=== PATIENT | male | born 1945 | race Hispanic/Latino ===

== ENCOUNTER 2018-01-01 06:36 | Day surgery (SDC) | payer OTHER ==
[2017-12-28 13:50] VITALS: BP 133/54
[2017-12-28 14:23] LABS: CREATININE 1.5 mg/dL (0.5-1.5); INR 1.02 (0.85-1.15); PARTIAL THROMBOPLASTIN TIME 30.5 SEC (26.3-35.5); POTASSIUM 4.9 mmol/L (3.5-5.1); PROTHROMBIN TIME 10.7 SEC (9.6-11.6)
[2017-12-28 14:31] LABS: BASOPHILS % (AUTO) 0.8 % (0.0-5.0); EOSINOPHILS % (AUTO) 2.6 % (0.0-8.0); HEMATOCRIT 40.1 % (42-54); LYMPHOCYTES % (AUTO) 27.2 % (21.0-51.0); MEAN CORPUSCULAR HGB CONC 33.9 g/dL (32.0-36.0); MEAN CORPUSCULAR VOLUME 91.5 fL (79-99); MONOCYTES % (AUTO) 9.2 % (3.0-13.0); NEUTROPHILS % (AUTO) 60.2 % (40.0-77.0); NUCLEATED RED BLOOD CELLS 0.1 % (0.0-0.19); PLATELET COUNT (AUTO) 293 K/uL (130-400); RED BLOOD CELL COUNT(AUTO) 4.39 MIL/uL (4.50-6.20); RED CELL DISTRIBUTION WIDTH 13.9 % (11.0-15.5); WHITE BLOOD COUNT (AUTO) 11.6 K/uL (4.8-10.8)
[2017-12-28 14:49] LABS: APPEARANCE,URINE Clear (CLEAR); BILIRUBIN,URINE Negative (NEGATIVE); COLOR,URINE Yellow (YELLOW); GLUCOSE, URINE (UA) Negative (NEGATIVE); KETONES,URINE Negative (NEGATIVE); LEUKOCYTE ESTERASE ,URINE Negative (NEGATIVE); NITRATE,URINE Negative (NEGATIVE); OCCULT BLOOD,URINE Negative (NEGATIVE); PROTEIN,URINE Negative (NEGATIVE); UROBILINOGEN,URINE 0.2 mg/dL (0.2-1.0)
[~2018-01-01] VITALS: Ht 170.2 cm; Wt 93.6 kg
[2018-01-01] VITALS (17 sets, daily range): BP systolic 128–150; BP diastolic 47–65
[~2018-01-01 06:36] MED LIST: AMLO10TA2 PO; CLOP75TA32 PO; CYAN10009 PO; DONE10TA43 PO; DULO60CA63 PO; EZET10 PO; FE F1CAP33 PO; FISH1CAP49 PO; GEMF600T3 PO; INS7030 SQ; ISOS60TA4 PO; LISI1TAB9 PO; MAGN400T6 PO; METF10004 PO; METO-391 PO; PRAV20TA4 PO; SODIUM CHLORIDE 0.9% 500ML 500 ML IV SCH; TAMS0.4C32 PO; VORA2.082 PO
[2018-01-01] MEDS ORDERED: SODIUM CHLORIDE 0.9% 1000ML 1,000 ML IV ONE (08:14)
[2018-01-01] MEDS ORDERED: NITROGLYCERIN 5 MG/ML 10 ML VIAL IV ONE (09:40)
[2018-01-01] MEDS ORDERED: IOPAMIDOL-370 100 ML VIAL IV ONE (09:40)
[2018-01-01] MEDS ORDERED: ISOVUE-370 50ML VIAL IV ONE (09:40)
[2018-01-01] MEDS ORDERED: HEPARIN SODIUM 1000UNIT/ML 10ML VIAL ONE (09:40)
[2018-01-01] MEDS ORDERED: LIDOCAINE HCL 2% 20ML ONE (09:41)
[2018-01-01] MEDS ORDERED: SODIUM CHLORIDE 0.9% 1000ML 1,000 ML IV SCH (10:43)
[2018-01-01] MEDS ORDERED: GLUCAGON 1MG KIT 1 MG ML IM PRN (10:45)
[2018-01-01] MEDS ORDERED: HYDRALAZINE HCL 20 MG/ML VIAL IV PRN (10:45)
[2018-01-01] MEDS ORDERED: METOPROLOL TARTRATE 1 MG/ML 5ML VIAL IV PRN (10:45)
[2018-01-01] MEDS ORDERED: NITROGLYCERIN 0.4 MG SL TAB SL PRN (10:45)
[2018-01-01] MEDS ORDERED: DEXTROSE 50%-WATER 50 ML DISP.SYRIN IV PRN (10:45)
[2018-01-01] MEDS ORDERED: ATROPINE SULFATE 0.1 MG/ML 10 ML SYG IVP ONE (11:11)
[2018-01-01] MEDS ORDERED: INSULIN HUMULIN R 100 UNIT/ML 3ML SQ SCH (11:30)
== END 2018-01-01 15:10 | disposition home or self-care (01) ==
LOC: DAH 06:36
PROVIDERS: ATTEND Internal Medicine Cardiovascular Disease
DX: I25.119 Atherosclerotic heart disease of native coronary artery with unspecified angina pectoris (principal); Z95.1 Presence of aortocoronary bypass graft; Z79.899 Other long term (current) drug therapy; F32.9 Major depressive disorder, single episode, unspecified; E11.9 Type 2 diabetes mellitus without complications; E78.5 Hyperlipidemia, unspecified; I10 Essential (primary) hypertension; Z82.49 Family history of ischemic heart disease and other diseases of the circulatory system; Z83.3 Family history of diabetes mellitus; Z68.32 Body mass index [BMI] 32.0-32.9, adult; R06.02 Shortness of breath
CPT/HCPCS: 36415; 71045; 80048; 81003; 82948 ×2; 85025; 85610; 85730; 93005; 93458; A4606; C1894 ×2; J1644; J1815; J3490 ×2; J7030; Q9967; J0461

== ENCOUNTER → 2018-08-01 | Outpatient (CLI) | payer OTHER ==
[~2018-08-01] MED LIST changes: -AMLO10TA2 PO; +AMLO10TA6 PO; -GEMF600T3 PO; +GEMF600T4 PO; +METF-446 PO; -METF10004 PO; -SODIUM CHLORIDE 0.9% 500ML 500 ML IV SCH
== END | disposition home or self-care (01) ==
LOC: RAH 10:06
PROVIDERS: ATTEND Internal Medicine Cardiovascular Disease
DX: K76.0 Fatty (change of) liver, not elsewhere classified (principal); J44.9 Chronic obstructive pulmonary disease, unspecified; Z95.1 Presence of aortocoronary bypass graft
CPT/HCPCS: 71250

== ENCOUNTER → 2019-05-23 | Outpatient (CLI) | payer OTHER ==
[~2019-05-23] MED LIST changes: -AMLO10TA6 PO; +AMLO10TA7 PO; +CYAN-52 PO; -CYAN10009 PO; -DULO60CA63 PO; +DULO60CA64 PO; -GEMF600T4 PO; +GEMF600T5 PO
== END | disposition home or self-care (01) ==
LOC: SHCH 12:40
PROVIDERS: ATTEND Internal Medicine Cardiovascular Disease
DX: I73.9 Peripheral vascular disease, unspecified (principal); R09.89 Other specified symptoms and signs involving the circulatory and respiratory systems
CPT/HCPCS: 93880; 93925

== ENCOUNTER → 2019-05-29 | Outpatient (CLI) | payer OTHER | END | disposition home or self-care (01) | LOC: SHCH 15:00 | PROVIDERS: ATTEND Internal Medicine Cardiovascular Disease | DX: I08.2 Rheumatic disorders of both aortic and tricuspid valves (principal); I11.9 Hypertensive heart disease without heart failure; I20.9 Angina pectoris, unspecified; J44.9 Chronic obstructive pulmonary disease, unspecified | CPT/HCPCS: 93306 ==

== ENCOUNTER 2019-07-25 06:19 | Day surgery (SDC) | payer OTHER ==
[2019-07-23 13:39] VITALS: BP 128/50
[2019-07-23 13:50] LABS: BASOPHILS % (AUTO) 0.9 % (0.0-5.0); EOSINOPHILS % (AUTO) 1.4 % (0.0-8.0); HEMATOCRIT 33.3 % (42-54); LYMPHOCYTES % (AUTO) 26.3 % (21.0-51.0); MEAN CORPUSCULAR HEMOGLOBIN 30.4 pg (27.0-33.0); MEAN CORPUSCULAR HGB CONC 33.2 g/dL (32.0-36.0); MEAN CORPUSCULAR VOLUME 91.5 fL (79-99); MONOCYTES % (AUTO) 9.8 % (3.0-13.0); NEUTROPHILS % (AUTO) 61.6 % (40.0-77.0); PLATELET COUNT (AUTO) 313 K/uL (130-400); RED BLOOD CELL COUNT(AUTO) 3.64 MIL/uL (4.50-6.20); RED CELL DISTRIBUTION WIDTH 18.3 % (11.0-15.5)
[2019-07-23 14:18] LABS: APPEARANCE,URINE Clear (CLEAR); BILIRUBIN,URINE Negative (NEGATIVE); COLOR,URINE Yellow (YELLOW); GLUCOSE, URINE (UA) Negative (NEGATIVE); KETONES,URINE Negative (NEGATIVE); LEUKOCYTE ESTERASE ,URINE Trace (NEGATIVE); NITRATE,URINE Negative (NEGATIVE); OCCULT BLOOD,URINE Negative (NEGATIVE); PH,URINE 5.5 (5.0-8.0); PROTEIN,URINE Trace mg/dL (NEGATIVE)
[2019-07-23 14:20] LABS: INR 1.02 (0.85-1.15); PARTIAL THROMBOPLASTIN TIME 31.7 SEC (26.3-35.5); PROTHROMBIN TIME 10.7 SEC (9.6-11.6)
[2019-07-23 14:22] LABS: CREATININE 1.5 mg/dL (0.5-1.5)
[2019-07-23 14:29] LABS: POTASSIUM 5.6 mmol/L (3.5-5.1)
[2019-07-23 14:36] LABS: BACTERIA,URINE Rare /HPF (None Seen); RBC,URINE 0-1 /HPF (0-1); SQUAMOUS EPITHELIAL CELL,UR Rare /HPF (0-2)
--- NOTE | 2019-07-24 14:08 | NUR ---
LABS ABNORMAL LABS FAXED TO [facility] PER HIS REQUEST. AWAITING FOR FURTHER ORDERS
--- NOTE | 2019-07-24 14:30 | NUR ---
LABS INFORMED OSMANY PEÑA OF ABNORMAL BUN/CREA/POTASSIUM/UA. ORDERS RECEIVED TO HAVE PT HOLD LISINOPRIL AND TAKE KAYEXALATE 15GRAMS X1 DOSE TONIGHT AND REPEAT BMP IN AM.
--- NOTE | 2019-07-24 15:56 | NUR ---
[facility] CALLED PT TO INFORM TO HOLD LISINOPRIL AND ORDERS FOR KAYEXALATE 15GRAMS PO X1 DOSE TONIGHT. WANTS PRESCRIPTION CALLED IN TO [facility] ON ANAN[place] [phone]. PT VERBALIZED UNDERSTANDING. PRERSCRIPTION CALLED IN TO [facility] WILL[facility]. PT WILL [employer] SPECIALIST PRESCRIPTION TODAY.
[2019-07-25] VITALS (19 sets, daily range): BP systolic 119–171; BP diastolic 51–67
[~2019-07-25] VITALS: Ht 172.7 cm; Wt 88.5 kg
[~2019-07-25 06:19] MED LIST changes: +ALBU8.5H8 IH; +ALLO100T PO; -EZET10 PO; +EZET10TA13 PO; +FLUT1BLS IH; -INS7030 SQ; -ISOS60TA4 PO; +LISI1TAB28 PO; -LISI1TAB9 PO; -MAGN400T6 PO; +NITR0.4T50 SL; +UMEC62.5 IH; -VORA2.082 PO
[2019-07-25 07:00] LABS: CREATININE 1.7 mg/dL (0.5-1.5); POTASSIUM 4.8 mmol/L (3.5-5.1)
[2019-07-25] MEDS ORDERED: IOHEXOL 350 MG/ML 100ML INFUS..BTL IV ONE ×2 (07:40→07:59)
[2019-07-25] MEDS ORDERED: LIDOCAINE HCL 2% 20ML ONE (07:40)
[2019-07-25] MEDS ORDERED: IOHEXOL-350 50ML VIAL IV ONE (07:40)
[2019-07-25] MEDS ORDERED: BIVALIRUDIN 250 MG/VIAL IV ONE (07:40)
[2019-07-25] MEDS ORDERED: NITROGLYCERIN 5 MG/ML 10 ML VIAL IV ONE (07:40)
[2019-07-25] MEDS ORDERED: SODIUM CHLORIDE 0.9% 1000ML 1,000 ML IV SCH ×2 (08:00→12:44)
[2019-07-25] MEDS ORDERED: INS7030 SQ ×2 (08:01)
--- NOTE | 2019-07-25 08:13 | NUR ---
BMP BMP RESULTS REPORTED TO OSMANY ASHLEY. POTASSIUM LEVEL 4.8, CREAT 1.7. ORDERS TO GIVE NS 250 ML IV BOLUS THEN NS 75 ML/HR UNTIL PT GOES TO PROCEDURE. Addendum: 07/25/19 at 0939 by HEATHER VALDEZ RN RN ADDENDUM: NS 250 ML IV BOLUS STARTED, PT TOLERATING WELL.
[2019-07-25] MEDS ORDERED: SODIUM CHLORIDE 0.9% 250 ML IV SCH (10:45)
[2019-07-25] MEDS ORDERED: MIDAZOLAM HCL 1 MG/ML 2ML VIAL ONE (10:52)
[2019-07-25] MEDS ORDERED: FENTANYL CITRATE PF 50 MCG/1 ML 2ML VIAL ONE (10:53)
[2019-07-25] MEDS ORDERED: HEPARIN SODIUM 1000UNIT/ML 10ML VIAL ONE (11:04)
[2019-07-25] MEDS ORDERED: HYDRALAZINE HCL 20 MG/ML VIAL ONE (12:30)
[2019-07-25] MEDS ORDERED: CLOPIDOGREL BISULFATE 300 MG TAB ONE (12:43)
[2019-07-25] MEDS ORDERED: ASPIRIN 81MG TAB.CHEW ONE (12:44)
[2019-07-25] MEDS ORDERED: GLUCAGON 1MG KIT 1 MG ML IM PRN (12:45)
[2019-07-25] MEDS ORDERED: HYDRALAZINE HCL 20 MG/ML VIAL IV PRN (12:45)
[2019-07-25] MEDS ORDERED: DEXTROSE 50%-WATER 50 ML DISP.SYRIN IV PRN (12:45)
[2019-07-25] MEDS ORDERED: ATROPINE SULFATE 0.1 MG/ML 10 ML SYG IVP ONE (12:58)
--- NOTE | 2019-07-25 14:20 | NUR ---
REPORT RECEIVED REPORT FROM ROSA WILLETT. PT LYING FLAT. INSTRUCTED ON IMPORTANCE OF MAINTAINING LEFT LEG STRAIGHT AND NOT LIFTING HEAD UP OFF OF BED. VERBALIZED UNDERSTANDING. URINAL OFFERED. INSTRUCTED PT ON BEDREST. VERBALIZED UNDERSTANDING. SITE SOFT TO TOUCH. NO BLEEDING, OOZING NOTED TO SITE.
[2019-07-25] MEDS ORDERED: INSULIN HUMULIN R 100 UNIT/ML 3ML SQ SCH (16:30)
--- NOTE | 2019-07-25 17:50 | NUR ---
DISCHARGE ORAL AND WRITTEN DISCHARGE INSTRUCTIONS GIVEN TO PT AND PTS DAUGHTER ALONG WITH PRESCRIPTION. SITE TO LEFT GROIN SOFT TO TOUCH. NO BLEEDING, OOZING NOTED FROM SITE. INSTRUCTED ON IMPORTANCE OF MONITORING RIGHT LEG FOR ANY PAIN AND LEFT LEG FOR BLEEDING. BOTH VERBALIZED UNDERSTANDING. INSTRUCTED ON ORDERS PER DR. REYNOLDS ON STOPPING GEMFIBROZIL AND FISH OIL AND STARTING NEW MEDICATIONS. BOTH VERBALIZED UNDERSTANDING.
== END 2019-07-25 18:20 | disposition home or self-care (01) ==
LOC: DAH 06:19
PROVIDERS: ATTEND Internal Medicine Cardiovascular Disease
DX: I70.211 Atherosclerosis of native arteries of extremities with intermittent claudication, right leg (principal); I25.10 Atherosclerotic heart disease of native coronary artery without angina pectoris; I10 Essential (primary) hypertension; K21.9 Gastro-esophageal reflux disease without esophagitis; E78.5 Hyperlipidemia, unspecified; F32.9 Major depressive disorder, single episode, unspecified; J44.9 Chronic obstructive pulmonary disease, unspecified; Z79.84 Long term (current) use of oral hypoglycemic drugs; Z79.899 Other long term (current) drug therapy; Z79.4 Long term (current) use of insulin; Z87.891 Personal history of nicotine dependence; Z95.1 Presence of aortocoronary bypass graft; Z82.5 Family history of asthma and other chronic lower respiratory diseases; Z82.49 Family history of ischemic heart disease and other diseases of the circulatory system; Z98.890 Other specified postprocedural states
CPT/HCPCS: 36415 ×2; 37227; 71045; 75716; 80048 ×2; 81001; 82948; 85025; 85347; 85610; 85730; 93005; 93455; 96360; 96361; 96365; A4215; A4216; A4221; A4222; A4223 ×3; A4606; C1724; C1725 ×2; C1769 ×2; C1874 ×2; C1887; C1893; C1894 ×2; J0360 ×2; J1644 ×3; J2250; J3010; J3490 ×2; Q9965; Q9967 ×2; 37226; 75710; 93454; 99156; 99157; J0461; J0583

== ENCOUNTER 2019-09-01 05:21 | Inpatient (IN) | payer OTHER ==
[2019-09-01] VITALS (29 sets, daily range): BP systolic 117–154; BP diastolic 55–79
[~2019-09-01] VITALS: Ht 167.6 cm; Wt 88.8 kg
[~2019-09-01 05:21] MED LIST changes: -FISH1CAP49 PO; -GEMF600T5 PO; +INS7030 SQ
[2019-09-01] MEDS ORDERED: NITROGLYCERIN 50 MG/D5% WATER 1 BOT ONE (05:47)
[2019-09-01 05:48] LABS: BASOPHILS % (AUTO) 0.7 % (0.0-5.0); EOSINOPHILS % (AUTO) 1.7 % (0.0-8.0); HEMATOCRIT 26.4 % (42-54); LYMPHOCYTES % (AUTO) 28.3 % (21.0-51.0); MEAN CORPUSCULAR HEMOGLOBIN 30.1 pg (27.0-33.0); MEAN CORPUSCULAR HGB CONC 32.4 g/dL (32.0-36.0); MEAN CORPUSCULAR VOLUME 92.9 fL (79-99); MONOCYTES % (AUTO) 7.3 % (3.0-13.0); PLATELET COUNT (AUTO) 293 K/uL (130-400); RED BLOOD CELL COUNT(AUTO) 2.84 MIL/uL (4.50-6.20); RED CELL DISTRIBUTION WIDTH 16.7 % (11.0-15.5); WHITE BLOOD COUNT (AUTO) 12.3 K/uL (4.8-10.8)
[2019-09-01] MEDS ORDERED: ASPIRIN 325 MG TABLET ONE (05:50)
[2019-09-01 06:04] LABS: INR 0.97 (0.85-1.15); PARTIAL THROMBOPLASTIN TIME 30.8 SEC (26.3-35.5); PROTHROMBIN TIME 10.2 SEC (9.6-11.6)
[2019-09-01 06:11] LABS: CREATININE 1.4 mg/dL (0.5-1.5); POTASSIUM 4.9 mmol/L (3.5-5.1)
[2019-09-01 06:13] LABS: ALBUMIN 3.5 g/dL (3.5-5.0); BILIRUBIN,TOTAL 0.2 mg/dL (0.2-1.0); TOTAL PROTEIN, SERUM 7.9 g/dL (6.0-8.3)
[2019-09-01] MEDS ORDERED: BIVALIRUDIN 250 MG/VIAL IV ONE (06:14)
[2019-09-01] MEDS ORDERED: MIDAZOLAM HCL 1 MG/ML 2ML VIAL ONE (06:15)
[2019-09-01] MEDS ORDERED: NITROGLYCERIN 5 MG/ML 10 ML VIAL IV ONE (06:15)
[2019-09-01] MEDS ORDERED: HEPARIN SODIUM 1000UNIT/ML 10ML VIAL ONE (06:15)
[2019-09-01] MEDS ORDERED: FENTANYL CITRATE PF 50 MCG/1 ML 2ML VIAL ONE (06:15)
[2019-09-01] MEDS ORDERED: IOHEXOL-350 50ML VIAL IV ONE ×2 (06:15→06:18)
[2019-09-01] MEDS ORDERED: LIDOCAINE HCL 2% 20ML ONE (06:15)
[2019-09-01] MEDS ORDERED: IOHEXOL 350 MG/ML 100ML INFUS..BTL IV ONE (06:15)
[2019-09-01] MEDS ORDERED: LIDOCAINE PF 2% 5ML ABBOJECT ONE (06:21)
[2019-09-01] MEDS ORDERED: DOPAMINE HCL 400 MG/D5%-WATER 0 ML IV ONE (06:21)
[2019-09-01] MEDS ORDERED: ATROPINE SULFATE 0.1 MG/ML 10 ML SYG IVP ONE (06:21)
[2019-09-01 06:22] LABS: B-TYPE NATRIURETIC PEPTIDE 160 pg/mL (0-100)
[2019-09-01] MEDS ORDERED: SODIUM CHLORIDE 0.9% 100 ML IV ONE (07:22)
[2019-09-01] MEDS ORDERED: NITROGLYCERIN 50 MG/D5% WATER 250 BOT IV PRN (07:45)
[2019-09-01] MEDS ORDERED: METOPROLOL TARTRATE 1 MG/ML 5ML VIAL IV PRN (07:45)
[2019-09-01] MEDS ORDERED: METF-446 PO (09:33)
[2019-09-01] MEDS ORDERED: ASPI-555 PO (09:33)
[2019-09-01] MEDS ORDERED: ICOS1CAP PO (09:33)
--- NOTE | 2019-09-01 10:45 | NUR ---
DR. Robbie CHARLES IN TO SEE PT. PLAN OF CARE DISCUSSED. NEW ORDERS RECEIVED AND NOTED.
[2019-09-01 11:26] LABS: TROPONIN I 0.72 ng/mL (0.00-0.06)
[2019-09-01] MEDS: ATORVASTATIN CALCIUM 40 MG TABLET PO SCH (11:46)
--- NOTE | 2019-09-01 11:55 | NUR ---
DR. Robbie CHARLES CALLED AND NOTIFIED OF CARDIA ENZYMES RESULTS. NEW ORDERS RECEIVED AND NOTED.
[2019-09-01 12:39] LABS: HEMATOCRIT 22.2 % (42-54)
--- NOTE | 2019-09-01 13:00 | NUR ---
DR. CORTES OFFICE CALLED TO NOTIFY OF CONSULT X 3 ATTEMPTS, NO ANSWER AT OFFICE, MESSAGE LEFT ON ANSWERING SYSTEM. AUTO SERVICE DISPATCHER NOTIFIED. CALLED DR. BAILEY ON CELL PHONE AND NOTIFIED ON CONSULT. NEW ORDERS RECEIVED AND NOTED. Addendum: 09/01/19 at 1344 by DIONTE CONN RN RN DR. SATURNINO BAILEY*
[2019-09-01] MEDS: METOPROLOL TARTRATE 25 MG TAB PO SCH ×2 (14:04→21:01)
[2019-09-01 15:51] LABS: APPEARANCE,URINE Clear (CLEAR); BILIRUBIN,URINE Negative (NEGATIVE); COLOR,URINE Yellow (YELLOW); GLUCOSE, URINE (UA) Negative (NEGATIVE); KETONES,URINE Negative (NEGATIVE); LEUKOCYTE ESTERASE ,URINE Negative (NEGATIVE); NITRATE,URINE Negative (NEGATIVE); OCCULT BLOOD,URINE Negative (NEGATIVE); PH,URINE 6.5 (5.0-8.0); PROTEIN,URINE Negative (NEGATIVE); UROBILINOGEN,URINE 0.2 mg/dL (0.2-1.0)
--- NOTE | 2019-09-01 16:00 | NUR ---
PT TOLERATING TRANSFUSION OF PRBC. NO ADVERSE REACTION NOTED.
[2019-09-01] MEDS: INSULIN HUMULIN R 100 UNIT/ML 3ML SQ SCH ×2 (16:30→21:00)
[2019-09-01] MEDS: **HM** VASCEPA 2GM PO SCH (16:42)
[2019-09-01] MEDS: PANTOPRAZOLE SODIUM 80 MG in NS 100ML IVP SCH (16:45)
[2019-09-01 17:09] LABS: TROPONIN I 1.32 ng/mL (0.00-0.06)
--- NOTE | 2019-09-01 20:00 | NUR ---
ASSESSMENT AWAKE. RESTING IN BED. HAS PROTONIX AND NITROGLYCERINE DRIPS INFUSING. ENCOURAGED TO CALL FOR WANTS OR NEEDS. ASSESSMENT COMPLETED SEE FLOW SHEET. Addendum: 09/01/19 at 2026 by MAYLIN OBRIEN RN RN Amended: Links added.
[2019-09-01 23:02] LABS: TROPONIN I 1.93 ng/mL (0.00-0.06)
[2019-09-02] VITALS (25 sets, daily range): BP systolic 127–167; BP diastolic 44–93
[2019-09-02] MEDS: INSULIN HUMULIN R 100 UNIT/ML 3ML SQ SCH ×4 (05:41→20:18)
[2019-09-02 05:51] LABS: HEMATOCRIT 28.2 % (42-54); MEAN CORPUSCULAR HGB CONC 33.5 g/dL (32.0-36.0); MEAN CORPUSCULAR VOLUME 92.7 fL (79-99); PLATELET COUNT (AUTO) 271 K/uL (130-400); RED BLOOD CELL COUNT(AUTO) 3.04 MIL/uL (4.50-6.20); RED CELL DISTRIBUTION WIDTH 16.6 % (11.0-15.5); WHITE BLOOD COUNT (AUTO) 9.9 K/uL (4.8-10.8)
[2019-09-02 06:27] LABS: CREATININE 1.2 mg/dL (0.5-1.5); POTASSIUM 4.5 mmol/L (3.5-5.1)
[2019-09-02 06:42] LABS: TROPONIN I 1.21 ng/mL (0.00-0.06)
[2019-09-02] MEDS ORDERED: REGADENOSON 0.4 MG/5 ML PF SYG IVP SCH (08:15)
[2019-09-02] MEDS ORDERED: PROPOFOL 10 MG/ML 20ML VIAL IV ONE (08:42)
[2019-09-02] MEDS: ASPIRIN 325 MG TABLET PO SCH (09:00)
[2019-09-02] MEDS: ATORVASTATIN CALCIUM 40 MG TABLET PO SCH (10:40)
[2019-09-02] MEDS: **HM** VASCEPA 2GM PO SCH ×2 (10:42→16:40)
[2019-09-02] MEDS: METOPROLOL TARTRATE 25 MG TAB PO SCH ×3 (10:42→21:00)
[2019-09-02 12:23] LABS: HEMATOCRIT 29.7 % (42-54)
[2019-09-02] MEDS: PANTOPRAZOLE SODIUM 80 MG in NS 100ML IVP SCH (15:24)
--- NOTE | 2019-09-02 16:48 | NUR ---
DC PLAN VISITED WITH PATIENT AND FAMILY. PATIENT LIVES ALONE. INDEPENDENT ABLE TO PERFORM ADL'S. PATIENT HAS NO SERVICES. AVAILABLE DME WALKER AND CANE DOES NOT USE. FEELS SAFE TO RETURN HOME. DAUGHTER INTERESTED IN PROVIDER SERVICES EXPLAINED THAT THEY WOULD HAVE TO GO THROUGH PRIMARY. WILL LEAVE INFO FOR DAD'S. Addendum: 09/02/19 at 1651 by KOKO LUDWIG RN CM Amended: Links added.
--- NOTE | 2019-09-02 19:39 | NUR ---
ASSESSMENT PATIENT AWAKE. ALERT , ORIENTED, LUNGS CLEAR ON 2L NC, O2 SAT 97%, PATIENT RESTING IN BED. PLEASANT , LAUGHING, WATCHING FOOTBALL ON TV, DAUGHTER AT BEDSIDE. CALL GODOY IN REACH ASSESSMENT COMPLETED SEE FLOW SHEET.
[2019-09-02 20:35] LABS: HEMATOCRIT 26.2 % (42-54)
[2019-09-02] MEDS: PANTOPRAZOLE SODIUM 40 MG TABLET.DR PO SCH (21:04)
[2019-09-02] MEDS ORDERED: NITROGLYCERIN 0.4 MG SL TAB SL PRN (21:30)
[2019-09-03] VITALS (21 sets, daily range): BP systolic 129–165; BP diastolic 50–74
--- NOTE | 2019-09-03 05:57 | NUR ---
PATIENT RESTING IN BED C/O CHEST PRESSURE AND EPIGASTRIC PAIN "3" GRIMACING. NITRO SL X GIVEN. AFTER 5 MIN PATIENT REPORTED RELIEF FROM PAIN. TRIDIL DRIP RESTARTED AT 3 MCG/MIN. 12 LEAD EKG DONE AT BEDSIDE. Addendum: 09/03/19 at 0622 by PAT CAMARGO RN RN SHOULD READ - NITRO 10 MCG/ MIN= 3 ML/HR
[2019-09-03] MEDS: INSULIN HUMULIN R 100 UNIT/ML 3ML SQ SCH ×4 (06:22→20:47)
[2019-09-03] MEDS: **HM** VASCEPA 2GM PO SCH ×2 (08:00→16:39)
--- NOTE | 2019-09-03 08:00 | NUR ---
AM NOTE Awake, alert, and oriented x3. Denies any chest pain. Nitroglycerin drip turned off. Instructed to remain NPO for pending EGD, verbalized understanding.
[2019-09-03 08:06] LABS: HEMATOCRIT 27.8 % (42-54); MEAN CORPUSCULAR HEMOGLOBIN 29.7 pg (27.0-33.0); MEAN CORPUSCULAR HGB CONC 32.6 g/dL (32.0-36.0); MEAN CORPUSCULAR VOLUME 90.9 fL (79-99); PLATELET COUNT (AUTO) 285 K/uL (130-400); RED BLOOD CELL COUNT(AUTO) 3.06 MIL/uL (4.50-6.20); RED CELL DISTRIBUTION WIDTH 15.9 % (11.0-15.5); WHITE BLOOD COUNT (AUTO) 11.9 K/uL (4.8-10.8)
[2019-09-03] MEDS: ATORVASTATIN CALCIUM 40 MG TABLET PO SCH (08:08)
[2019-09-03] MEDS: PANTOPRAZOLE SODIUM 40 MG TABLET.DR PO SCH ×2 (08:08→20:46)
[2019-09-03] MEDS: ASPIRIN 325 MG TABLET PO SCH (08:08)
[2019-09-03] MEDS: AMLODIPINE BESYLATE 5 MG TAB PO SCH (08:08)
[2019-09-03] MEDS: METOPROLOL TARTRATE 25 MG TAB PO SCH ×3 (08:14→20:46)
[2019-09-03 08:16] LABS: CREATININE 1.2 mg/dL (0.5-1.5); POTASSIUM 4.2 mmol/L (3.5-5.1)
--- NOTE | 2019-09-03 10:50 | NUR ---
EGD Pt going to Endoscopy procedure at this time. .
--- NOTE | 2019-09-03 12:28 | NUR ---
[facility] Dr. Santamaria notified of EGD cancelled by Dr. Rodriguez. New order received and will carry out.
[2019-09-03] MEDS ORDERED: MIDAZOLAM HCL 1 MG/ML 2ML VIAL ONE (14:33)
[2019-09-03] MEDS ORDERED: PROPOFOL 10 MG/ML 20ML VIAL IV ONE (14:34)
[2019-09-03] MEDS ORDERED: LIDOCAINE HCL-MPF 2% 5ML VIAL ONE (14:34)
[2019-09-03] MEDS ORDERED: PEG 3350/NA SULF,BICARB,CL/KCL 4000 ML SOLN PO SCH (17:00)
--- NOTE | 2019-09-03 19:11 | NUR ---
ASSESSMENT PATIENT AWAKE. ALERT , ORIENTED x 3, LUNGS CLEAR ON 2L NC, O2 SAT 96%, PATIENT RESTING IN BED. ABDOMEN SOFT , BOWEL SOUNDS ACTIVE , PATIENT TAKING GOLYTELY IN PREPARATION FOR COLONOSCOPY IN AM,PEDAL PULSES PALPABLE, NO VISITORS AT BEDSIDE. CALL GODOY IN REACH ASSESSMENT COMPLETED SEE FLOW SHEET.
[2019-09-04] VITALS (31 sets, daily range): BP systolic 17–179; BP diastolic 46–111
[2019-09-04 03:49] LABS: BASOPHILS % (AUTO) 0.6 % (0.0-5.0); EOSINOPHILS % (AUTO) 0.4 % (0.0-8.0); MEAN CORPUSCULAR HEMOGLOBIN 29.6 pg (27.0-33.0); MEAN CORPUSCULAR HGB CONC 32.4 g/dL (32.0-36.0); MEAN CORPUSCULAR VOLUME 91.3 fL (79-99); PLATELET COUNT (AUTO) 295 K/uL (130-400); RED BLOOD CELL COUNT(AUTO) 3.07 MIL/uL (4.50-6.20); RED CELL DISTRIBUTION WIDTH 15.7 % (11.0-15.5); WHITE BLOOD COUNT (AUTO) 14.2 K/uL (4.8-10.8)
[2019-09-04 04:09] LABS: INR 1.04 (0.85-1.15); PROTHROMBIN TIME 10.9 SEC (9.6-11.6)
[2019-09-04 04:16] LABS: CREATININE 1.3 mg/dL (0.5-1.5); POTASSIUM 3.8 mmol/L (3.5-5.1)
[2019-09-04] MEDS: INSULIN HUMULIN R 100 UNIT/ML 3ML SQ SCH ×4 (06:18→20:59)
[2019-09-04] MEDS: **HM** VASCEPA 2GM PO SCH ×2 (08:00→16:34)
[2019-09-04] MEDS ORDERED: PROPOFOL 10 MG/ML 20ML VIAL IV ONE ×2 (10:45)
[2019-09-04] MEDS ORDERED: ATROPINE SULFATE 0.1 MG/ML 10 ML SYG IVP ONE (10:55)
[2019-09-04] MEDS: PANTOPRAZOLE SODIUM 40 MG TABLET.DR PO SCH ×2 (12:11→20:58)
[2019-09-04] MEDS: ASPIRIN 325 MG TABLET PO SCH (12:11)
[2019-09-04] MEDS: AMLODIPINE BESYLATE 5 MG TAB PO SCH (12:11)
[2019-09-04] MEDS: ATORVASTATIN CALCIUM 40 MG TABLET PO SCH (12:11)
[2019-09-04] MEDS: METOPROLOL TARTRATE 25 MG TAB PO SCH ×3 (12:11→20:58)
--- NOTE | 2019-09-04 22:54 | NUR ---
Dr Asnari here at change of shift. Examined patient. Discussed plan of care with patient. Encouraged questions. Answered questions in detail. Dr Santamaria here to see patient at 1945. Discussed planned heart cath tomorrow in detail, sonya pictures for patient comprehension. Encouraged questions. All questions answered. Daughter Ingrid(states she is a nurse) in room with patient.
--- NOTE | 2019-09-04 23:00 | NUR ---
Patient transferred to room 221 PCCU. Report given to Ganga LEE. Call placed to daughter Ingrid to inform her of room changed. No answer. Left message on answering machine to please call Cydney LEE at [phone] . Care of patient endorsed to Ganga LEE. Patient denies pain, sob. Call back from daughter, informed of transfer.
[2019-09-05] VITALS (12 sets, daily range): BP systolic 136–163; BP diastolic 46–88
[2019-09-05] MEDS: INSULIN HUMULIN R 100 UNIT/ML 3ML SQ SCH ×4 (07:30→21:20)
[2019-09-05] MEDS: **HM** VASCEPA 2GM PO SCH ×2 (08:00→18:28)
[2019-09-05 08:43] LABS: BASOPHILS % (AUTO) 0.6 % (0.0-5.0); EOSINOPHILS % (AUTO) 0.5 % (0.0-8.0); HEMATOCRIT 25.2 % (42-54); LYMPHOCYTES % (AUTO) 12.5 % (21.0-51.0); MEAN CORPUSCULAR HEMOGLOBIN 29.6 pg (27.0-33.0); MEAN CORPUSCULAR HGB CONC 32.6 g/dL (32.0-36.0); MONOCYTES % (AUTO) 10.2 % (3.0-13.0); NEUTROPHILS % (AUTO) 76.2 % (40.0-77.0); PLATELET COUNT (AUTO) 259 K/uL (130-400); RED BLOOD CELL COUNT(AUTO) 2.77 MIL/uL (4.50-6.20); RED CELL DISTRIBUTION WIDTH 15.8 % (11.0-15.5); WHITE BLOOD COUNT (AUTO) 12.7 K/uL (4.8-10.8)
[2019-09-05 09:05] LABS: ALBUMIN 2.8 g/dL (3.5-5.0); BILIRUBIN,TOTAL 0.5 mg/dL (0.2-1.0); CREATININE 1.2 mg/dL (0.5-1.5); POTASSIUM 3.7 mmol/L (3.5-5.1); TOTAL PROTEIN, SERUM 6.9 g/dL (6.0-8.3); TROPONIN I 0.1 ng/mL (0.00-0.06)
[2019-09-05] MEDS ORDERED: HEPARIN SODIUM 1000UNIT/ML 10ML VIAL ONE (09:14)
[2019-09-05] MEDS ORDERED: IOHEXOL-350 50ML VIAL IV ONE ×2 (09:15→11:33)
[2019-09-05] MEDS ORDERED: NITROGLYCERIN 5 MG/ML 10 ML VIAL IV ONE (09:15)
[2019-09-05] MEDS ORDERED: FENTANYL CITRATE PF 50 MCG/1 ML 2ML VIAL ONE (09:15)
[2019-09-05] MEDS ORDERED: IOHEXOL 350 MG/ML 100ML INFUS..BTL IV ONE ×2 (09:15→10:22)
[2019-09-05] MEDS ORDERED: MIDAZOLAM HCL 1 MG/ML 2ML VIAL ONE (09:15)
[2019-09-05] MEDS ORDERED: LIDOCAINE HCL 2% 20ML ONE (09:15)
[2019-09-05] MEDS: METOPROLOL TARTRATE 25 MG TAB PO SCH ×3 (09:19→21:17)
[2019-09-05] MEDS ORDERED: NICARDIPINE HCL 25 MG/10 ML ML IV ONE (09:21)
[2019-09-05] MEDS ORDERED: TICAGRELOR 90 MG TABLET ONE (10:11)
[2019-09-05] MEDS ORDERED: IOHEXOL-350 75 ML VIAL IV ONE (10:42)
[2019-09-05] MEDS ORDERED: SODIUM CHLORIDE 0.9% 1000ML 1,000 ML IV SCH (12:18)
[2019-09-05] MEDS: AMLODIPINE BESYLATE 5 MG TAB PO SCH (18:20)
[2019-09-05] MEDS: PANTOPRAZOLE SODIUM 40 MG TABLET.DR PO SCH ×2 (18:20→21:17)
[2019-09-05] MEDS: ATORVASTATIN CALCIUM 40 MG TABLET PO SCH (18:21)
--- NOTE | 2019-09-05 20:09 | NUR ---
ASSESSMENT PATIENT IS RESTING IN BED. NO COMPLAINTS OF PAIN. NO SIGNS OF DISTRESS. NO SHORTNESS OF BREATH. PATIENT IS S/P LEFT HEART CATH THROUGH LEFT GROIN. PATIENTS INCISION AND DRESSING ARE CLEAN, DRY, AND INTACT. CALL LIGHT, BEDSIDE TABLE, AND PERSONAL BELONGINGS WITHIN REACH. ALERT AND ORIENTED X4. NO QUESTIONS, CONCERNS, OR NEEDS AT THIS TIME.
[2019-09-05] MEDS: TICAGRELOR 90 MG TABLET PO SCH (21:17)
--- NOTE | 2019-09-06 | NUR ---
ASSESSMENT PATIENT IS RESTING IN CHAIR. NO COMPLAINTS OF PAIN. NO SIGNS OF DISTRESS. NO SHORTNESS OF BREATH. INCISION IS CLEAN, DRY, AND INTACT. PATIENT IS AMBULATING IN ROOM WITH NO ISSUES. CALL LIGHT WITHIN REACH. BEDSIDE TABLE WITHIN REACH. NO QUESTIONS, CONCERNS, OR NEEDS AT THIS TIME.
[2019-09-06 03:57] VITALS: BP 147/55
[2019-09-06 03:58] LABS: HEMATOCRIT 24.4 % (42-54); MEAN CORPUSCULAR HEMOGLOBIN 29.8 pg (27.0-33.0); MEAN CORPUSCULAR HGB CONC 32.8 g/dL (32.0-36.0); MEAN CORPUSCULAR VOLUME 91.1 fL (79-99); PLATELET COUNT (AUTO) 246 K/uL (130-400); RED BLOOD CELL COUNT(AUTO) 2.67 MIL/uL (4.50-6.20); RED CELL DISTRIBUTION WIDTH 15.5 % (11.0-15.5); WHITE BLOOD COUNT (AUTO) 14.2 K/uL (4.8-10.8)
--- NOTE | 2019-09-06 04:00 | NUR ---
ASSESSMENT PATIENT IS RESTING IN BED. NO COMPLAINTS OF PAIN. NO SIGNS OF DISTRESS. NO SHORTNESS OF BREATH. INCISION REMAINS CLEAN DRY AND INTACT. CALL LIGHT WITHIN REACH. NO QUESTIONS, CONCERNS, OR NEEDS VOICED AT THIS TIME.
[2019-09-06 04:04] LABS: CREATININE 1.4 mg/dL (0.5-1.5); POTASSIUM 3.5 mmol/L (3.5-5.1)
[2019-09-06] MEDS: INSULIN HUMULIN R 100 UNIT/ML 3ML SQ SCH ×4 (06:40→20:46)
[2019-09-06 07:07] VITALS: BP 131/54
[2019-09-06] MEDS ORDERED: EPOETIN ALFA 10,000 UNIT/ML VIAL SQ SCH (08:45)
[2019-09-06] MEDS: **HM** VASCEPA 2GM PO SCH ×2 (08:47→17:00)
[2019-09-06] MEDS: TICAGRELOR 90 MG TABLET PO SCH ×2 (08:47→20:40)
[2019-09-06] MEDS: ATORVASTATIN CALCIUM 40 MG TABLET PO SCH (08:48)
[2019-09-06] MEDS: METOPROLOL TARTRATE 25 MG TAB PO SCH ×3 (08:48→20:40)
[2019-09-06] MEDS: PANTOPRAZOLE SODIUM 40 MG TABLET.DR PO SCH ×2 (08:48→20:40)
[2019-09-06] MEDS: ASPIRIN 81MG TAB.CHEW PO SCH (08:48)
[2019-09-06] MEDS: AMLODIPINE BESYLATE 5 MG TAB PO SCH (08:48)
[2019-09-06] MEDS ORDERED: IRON SUCROSE COMPLEX 500 MG in SODIUM CHLORIDE 0.9% 50 ML IV SCH (09:00)
[2019-09-06 09:35] LABS: % IRON SATURATION 4.5 % (30-44)
[2019-09-06] MEDS ORDERED: IRON SUCROSE COMPLEX 500 MG in SODIUM CHLORIDE 0.9% 250 ML IV SCH (09:38)
[2019-09-06] MEDS ORDERED: COMPOUND IV MISC 1 EACH IVSOLN MISC PRN (10:00)
[2019-09-06 11:12] VITALS: BP 143/56
[2019-09-06] MEDS: LINAGLIPTIN 5 MG TABLET PO SCH (12:35)
--- NOTE | 2019-09-06 14:24 | NUR ---
RD NOTIFICATION RD CONSULTS DUE TO LOS X 5. DIET: HEART HEALTHY. PO INTAKE 100% AND HAS GOOD APPETITE. LBM: 09/04 NOTED. S/P COLONOSCOPY ON 09/04/19, DIVERTICULOSIS NOTED. PT WITH HX OF HAVING MELONOTIC STOOLS. SKIN INTACT, NO EDEMA NOTED. PT SLEEPING DURING TIME OF VISIT. RD PENDING HIGH FIBER DIET AND NUTRITION EDUCATION. RD RECOMMENDS ADD 75GMCCD TO DIET ORDER ENCOURAGE HIGH FIBER DIET DUE TO DIVERTICULOSIS RD PENDING HIGH FIBER DIET AND NUTRITION EDUCATION RD WILL CONTINUE TO MONITOR AND FOLLOW UP NEEDED Addendum: 09/06/19 at [address] Amended: Links added.
[2019-09-06 15:22] VITALS: BP 148/64
--- NOTE | 2019-09-06 19:37 | NUR ---
ASSESSMENT PATIENT IS RESTING IN BED. ALERT AND ORIENTED X4. NO COMPLAINTS OF PAIN. NO SIGNS OF DISTRESS. NO SHORTNESS OF BREATH. PATIENTS CALL LIGHT, URINAL, AND BEDSIDE TABLE WITHIN REACH. NO QUESTIONS, CONCERNS, OR NEEDS AT THIS TIME. PATIENTS REINFORCED TO CALL FOR ANY NEEDS.
[2019-09-06 20:06] VITALS: BP 141/57
[2019-09-06] MEDS: INSULIN GLARGINE 100 UNITS/ML 10 ML VIAL SQ SCH (20:46)
[2019-09-07] VITALS (7 sets, daily range): BP systolic 131–152; BP diastolic 55–66
[2019-09-07 04:28] LABS: HEMATOCRIT 24.1 % (42-54); MEAN CORPUSCULAR HGB CONC 32.4 g/dL (32.0-36.0); MEAN CORPUSCULAR VOLUME 89.8 fL (79-99); NUCLEATED RED BLOOD CELLS 0.1 % (0.0-0.19); PLATELET COUNT (AUTO) 318 K/uL (130-400); RED BLOOD CELL COUNT(AUTO) 2.69 MIL/uL (4.50-6.20); RED CELL DISTRIBUTION WIDTH 15.8 % (11.0-15.5); WHITE BLOOD COUNT (AUTO) 11.8 K/uL (4.8-10.8)
[2019-09-07 04:35] LABS: CREATININE 1.5 mg/dL (0.5-1.5); POTASSIUM 3.6 mmol/L (3.5-5.1)
[2019-09-07] MEDS: INSULIN HUMULIN R 100 UNIT/ML 3ML SQ SCH ×4 (06:25→21:19)
[2019-09-07] MEDS: **HM** VASCEPA 2GM PO SCH ×2 (08:00→17:00)
[2019-09-07] MEDS: ATORVASTATIN CALCIUM 40 MG TABLET PO SCH (10:00)
[2019-09-07] MEDS: CLOPIDOGREL BISULFATE 75 MG TAB PO SCH (10:00)
[2019-09-07] MEDS: METOPROLOL TARTRATE 25 MG TAB PO SCH ×3 (10:00→20:59)
[2019-09-07] MEDS: LINAGLIPTIN 5 MG TABLET PO SCH (10:00)
[2019-09-07] MEDS: PANTOPRAZOLE SODIUM 40 MG TABLET.DR PO SCH ×2 (10:00→20:59)
[2019-09-07] MEDS: ASPIRIN 81MG TAB.CHEW PO SCH (10:01)
[2019-09-07] MEDS: AMLODIPINE BESYLATE 5 MG TAB PO SCH (10:01)
--- NOTE | 2019-09-07 11:41 | NUR ---
High fiber diet education: Provided pt with printed materials on high fiber diet. Pt verbalize understanding however states he will not comply. States he has "lived [address]" he also states he does not get enough financial help from food stamps. Pt encouraged to go to local Food [employer] and [employer]. Bony at bedside states "he will not do it". ROSA schwartz. Addendum: 09/07/19 at [address] Amended: Links added.
[2019-09-07] MEDS: INSULIN GLARGINE 100 UNITS/ML 10 ML VIAL SQ SCH (21:16)
[2019-09-08 01:00] VITALS: BP 135/65
[2019-09-08 03:35] VITALS: BP 129/67
[2019-09-08 04:10] LABS: BASOPHILS % (AUTO) 0.7 % (0.0-5.0); EOSINOPHILS % (AUTO) 2.7 % (0.0-8.0); HEMATOCRIT 22.6 % (42-54); LYMPHOCYTES % (AUTO) 14.9 % (21.0-51.0); MEAN CORPUSCULAR HEMOGLOBIN 29.3 pg (27.0-33.0); MEAN CORPUSCULAR HGB CONC 32.8 g/dL (32.0-36.0); MEAN CORPUSCULAR VOLUME 89.4 fL (79-99); MONOCYTES % (AUTO) 8.7 % (3.0-13.0); PLATELET COUNT (AUTO) 321 K/uL (130-400); RED BLOOD CELL COUNT(AUTO) 2.52 MIL/uL (4.50-6.20); RED CELL DISTRIBUTION WIDTH 15.7 % (11.0-15.5); WHITE BLOOD COUNT (AUTO) 10.8 K/uL (4.8-10.8)
[2019-09-08 04:21] LABS: CREATININE 1.4 mg/dL (0.5-1.5)
[2019-09-08] MEDS: INSULIN HUMULIN R 100 UNIT/ML 3ML SQ SCH ×4 (06:42→21:30)
[2019-09-08 07:58] VITALS: BP 136/62
[2019-09-08] MEDS: **HM** VASCEPA 2GM PO SCH ×2 (08:00→17:00)
[2019-09-08] MEDS: ASPIRIN 81MG TAB.CHEW PO SCH (08:55)
[2019-09-08] MEDS: AMLODIPINE BESYLATE 5 MG TAB PO SCH (08:55)
[2019-09-08] MEDS: PANTOPRAZOLE SODIUM 40 MG TABLET.DR PO SCH ×2 (08:55→21:14)
[2019-09-08] MEDS: CLOPIDOGREL BISULFATE 75 MG TAB PO SCH (08:55)
[2019-09-08] MEDS: METOPROLOL TARTRATE 25 MG TAB PO SCH ×3 (08:55→21:14)
[2019-09-08] MEDS: LINAGLIPTIN 5 MG TABLET PO SCH (08:55)
[2019-09-08] MEDS: ATORVASTATIN CALCIUM 40 MG TABLET PO SCH (08:56)
[2019-09-08 11:49] VITALS: BP 140/77
[2019-09-08] MEDS ORDERED: ACETAMINOPHEN 325 MG TAB PO ONE (15:15)
[2019-09-08 15:37] VITALS: BP 117/52
[2019-09-08] MEDS: DIPHENHYDRAMINE HCL 25 MG CAPSULE PO SCH (17:12)
[2019-09-08] MEDS ORDERED: SODIUM CHLORIDE 0.9% 250 ML IV ONE (17:34)
[2019-09-08] MEDS ORDERED: POTASSIUM CHLORIDE 20MEQ/100ML 100 ML IV PRN (19:30)
[2019-09-08] MEDS ORDERED: POTASSIUM CHLORIDE 20 MEQ ERTAB PO PRN (19:30)
[2019-09-08] MEDS ORDERED: POTASSIUM CHLORIDE 10% ELIXIR 20 MEQ/15 ML UDCUP PO PRN (19:30)
[2019-09-08] MEDS ORDERED: LIDOCAINE HCL-MPF 1% 2ML VIAL IV PRN (19:30)
[2019-09-08 20:18] VITALS: BP 133/49
[2019-09-08] MEDS: INSULIN GLARGINE 100 UNITS/ML 10 ML VIAL SQ SCH (21:30)
[2019-09-09] VITALS (7 sets, daily range): BP systolic 124–151; BP diastolic 50–70
[2019-09-09 04:20] LABS: BASOPHILS % (AUTO) 0.6 % (0.0-5.0); EOSINOPHILS % (AUTO) 2.7 % (0.0-8.0); LYMPHOCYTES % (AUTO) 15.4 % (21.0-51.0); MEAN CORPUSCULAR HEMOGLOBIN 29.8 pg (27.0-33.0); MEAN CORPUSCULAR HGB CONC 32.9 g/dL (32.0-36.0); MEAN CORPUSCULAR VOLUME 90.8 fL (79-99); MONOCYTES % (AUTO) 9.9 % (3.0-13.0); NEUTROPHILS % (AUTO) 71.4 % (40.0-77.0); NUCLEATED RED BLOOD CELLS 0.1 % (0.0-0.19); PLATELET COUNT (AUTO) 295 K/uL (130-400); RED BLOOD CELL COUNT(AUTO) 2.75 MIL/uL (4.50-6.20); RED CELL DISTRIBUTION WIDTH 15.5 % (11.0-15.5); WHITE BLOOD COUNT (AUTO) 9.7 K/uL (4.8-10.8)
[2019-09-09 06:46] LABS: CREATININE 1.4 mg/dL (0.5-1.5); POTASSIUM 3.1 mmol/L (3.5-5.1)
[2019-09-09] MEDS: INSULIN HUMULIN R 100 UNIT/ML 3ML SQ SCH ×3 (07:09→17:13)
--- NOTE | 2019-09-09 07:30 | NUR ---
ASSESSMENT ENCOUNTERED PT A&OX3, CALM COOPERATIVE AND DOES NOT APPEAR TO BE IN ANY DISTRESS NOR ANY NEURO DEFICITS PRESENT. PT DENIES PAIN, SOB, NAUSEA. PT IS AMBULATORY, GAIT STEADY AND STRONG WITH STAND BY ASSIST. CALL LIGHT WITHIN REACH.
[2019-09-09] MEDS: **HM** VASCEPA 2GM PO SCH ×2 (08:00→17:13)
[2019-09-09] MEDS: AMLODIPINE BESYLATE 5 MG TAB PO SCH (08:38)
[2019-09-09] MEDS: CLOPIDOGREL BISULFATE 75 MG TAB PO SCH (08:38)
[2019-09-09] MEDS: PANTOPRAZOLE SODIUM 40 MG TABLET.DR PO SCH ×2 (08:38→20:40)
[2019-09-09] MEDS: ASPIRIN 81MG TAB.CHEW PO SCH (08:38)
[2019-09-09] MEDS: LINAGLIPTIN 5 MG TABLET PO SCH (08:39)
[2019-09-09] MEDS: METOPROLOL TARTRATE 25 MG TAB PO SCH ×3 (08:40→20:40)
[2019-09-09] MEDS: INSULIN LISPRO 100 UNIT/ML 3ML SQ SCH ×2 (14:12→17:12)
[2019-09-09] MEDS: DIPHENHYDRAMINE HCL 25 MG CAPSULE PO SCH (15:15)
[2019-09-09] MEDS: ATORVASTATIN CALCIUM 40 MG TABLET PO SCH (17:10)
[2019-09-10 03:48] VITALS: BP 143/66
[2019-09-10] MEDS: INSULIN HUMULIN R 100 UNIT/ML 3ML SQ SCH ×3 (05:36→13:05)
[2019-09-10] MEDS: INSULIN GLARGINE 100 UNITS/ML 10 ML VIAL SQ SCH (05:38)
[2019-09-10] MEDS: INSULIN LISPRO 100 UNIT/ML 3ML SQ SCH ×2 (06:17→13:04)
[2019-09-10 06:58] LABS: HEMATOCRIT 24.9 % (42-54)
[2019-09-10 07:00] VITALS: BP 123/63
--- NOTE | 2019-09-10 07:35 | NUR ---
ASSESSMENT ENCOUNTERED PT AMBULATING IN HALLWAY, GAIT STEADY AND STRONG WITH STAND BY ASSIST, A&OX3, CALM COOPERATIVE AN DOES NOT APPEAR TO BE IN ANY DISTRESS NOR ANY NEURO DEFICITS PRESENT. PT DENIES PAIN, SOB, NAUSEA. PT IS ABLE TO TOLERATE FOODS, FLUIDS AND MEDICATION WITH NO THROAT CLEARANCE OR COUGH. CALL LIGHT WITHIN REACH.
[2019-09-10] MEDS: LINAGLIPTIN 5 MG TABLET PO SCH (10:09)
[2019-09-10] MEDS: CLOPIDOGREL BISULFATE 75 MG TAB PO SCH (10:10)
[2019-09-10] MEDS: ASPIRIN 81MG TAB.CHEW PO SCH (10:10)
[2019-09-10] MEDS: METOPROLOL TARTRATE 25 MG TAB PO SCH ×2 (10:10→13:05)
[2019-09-10] MEDS: PANTOPRAZOLE SODIUM 40 MG TABLET.DR PO SCH (10:10)
[2019-09-10] MEDS: AMLODIPINE BESYLATE 5 MG TAB PO SCH (10:10)
[2019-09-10] MEDS: **HM** VASCEPA 2GM PO SCH (10:11)
[2019-09-10 11:00] VITALS: BP 154/58
[2019-09-10] MEDS ORDERED: ATOR40TA69 PO (14:18)
[2019-09-10] MEDS ORDERED: PANT40TA PO (14:18)
--- NOTE | 2019-09-10 18:09 | NUR ---
DISCHARGE INSTRUCTIONS GIVEN, PIV REMOVED AND INTACT, DISCHARGED HOME TO FAMILY VEHICLE VIA WHEELCHAIR.
== END 2019-09-10 17:15 | disposition home or self-care (01) | DRG 246 ==
LOC: EDH 05:21 → EDHIP 07:00 → 2CH 08:38 → 2DH 09-04 22:42
PROVIDERS: ADMIT Internal Medicine; ATTEND Internal Medicine
PROC: 30233N1 Transfusion of Nonautologous Red Blood Cells into Peripheral Vein, Percutaneous Approach (ICD-10-PCS; 2019-09-04)
PROC: 0DJ08ZZ Inspection of Upper Intestinal Tract, Via Natural or Artificial Opening Endoscopic (ICD-10-PCS; 2019-09-04)
PROC: 0DJD8ZZ Inspection of Lower Intestinal Tract, Via Natural or Artificial Opening Endoscopic (ICD-10-PCS; 2019-09-04)
PROC: 027135Z Dilation of Coronary Artery, Two Arteries with Two Drug-eluting Intraluminal Devices, Percutaneous Approach (ICD-10-PCS; principal; 2019-09-05)
PROC: 4A023N7 Measurement of Cardiac Sampling and Pressure, Left Heart, Percutaneous Approach (ICD-10-PCS; 2019-09-05)
PROC: B2111ZZ Fluoroscopy of Multiple Coronary Arteries using Low Osmolar Contrast (ICD-10-PCS; 2019-09-05)
DX: I21.4 Non-ST elevation (NSTEMI) myocardial infarction (principal); I50.31 Acute diastolic (congestive) heart failure; D62 Acute posthemorrhagic anemia; K92.2 Gastrointestinal hemorrhage, unspecified; I25.5 Ischemic cardiomyopathy; E11.51 Type 2 diabetes mellitus with diabetic peripheral angiopathy without gangrene; E78.2 Mixed hyperlipidemia; I25.10 Atherosclerotic heart disease of native coronary artery without angina pectoris; I45.10 Unspecified right bundle-branch block; I44.0 Atrioventricular block, first degree; I11.0 Hypertensive heart disease with heart failure; J44.9 Chronic obstructive pulmonary disease, unspecified; K64.8 Other hemorrhoids; I25.2 Old myocardial infarction; Z95.1 Presence of aortocoronary bypass graft; Z95.5 Presence of coronary angioplasty implant and graft; Z87.891 Personal history of nicotine dependence; Z82.5 Family history of asthma and other chronic lower respiratory diseases; Z80.9 Family history of malignant neoplasm, unspecified; Z82.49 Family history of ischemic heart disease and other diseases of the circulatory system
CPT/HCPCS: 36415; 36430; 43235; 45378; 71045; 78278; 78452; 80048; 80053; 81003; 82270; 82550; 82948; 83540; 83550; 83735; 83874; 83880; 84484; 85014; 85018; 85025; 85027; 85610; 85730; 86850; 86900; 86901; 86922; 92920; 92921; 93005; 93017; 93454; 96374; 99156; 99157; 99291; A4606; A9500; A9512; C1725; C1894; C9113; C9600; G0378; J0461; J0583; J0885; J1265; J1644; J1756; J1815; J2001; J2250; J2704; J2785; J3010; J3490; J7030; P9016; Q0163; Q9967

== ENCOUNTER → 2019-11-08 | Outpatient (CLI) | payer OTHER ==
[~2019-11-08] MED LIST changes: +ATOR40TA69 PO; +CHOL100040 PO; -CLOP75TA32 PO; -FE F1CAP33 PO; +FERR1TAB22 PO; +FURO20TA6 PO; +ICOS1CAP PO; +LISI10TA7 PO; -LISI1TAB28 PO; -METF-446 PO; +PANT40TA PO; -PRAV20TA4 PO
== END | disposition home or self-care (01) ==
LOC: SHCH 09:10
PROVIDERS: ATTEND Internal Medicine Cardiovascular Disease
DX: I50.33 Acute on chronic diastolic (congestive) heart failure (principal)
CPT/HCPCS: 93306

== ENCOUNTER → 2019-11-12 | Outpatient (CLI) | payer OTHER | END | disposition home or self-care (01) | LOC: SHCH 08:23 | PROVIDERS: ATTEND Internal Medicine Cardiovascular Disease | DX: I70.203 Unspecified atherosclerosis of native arteries of extremities, bilateral legs (principal) | CPT/HCPCS: 93925 ==

== ENCOUNTER → 2020-01-29 | Outpatient (CLI) | payer OTHER | END | disposition home or self-care (01) | LOC: SHCH 09:23 | PROVIDERS: ATTEND Internal Medicine Cardiovascular Disease | DX: I87.2 Venous insufficiency (chronic) (peripheral) (principal) | CPT/HCPCS: 93925; 93970 ==

== ENCOUNTER 2020-03-20 06:48 | Day surgery (SDC) | payer OTHER ==
[2020-03-20] VITALS (16 sets, daily range): BP systolic 121–159; BP diastolic 48–88
[~2020-03-20 06:48] MED LIST changes: -AMLO10TA7 PO; -CHOL100040 PO; +CLOP75TA14 PO; -FERR1TAB22 PO; -FLUT1BLS IH; +IRON PO; +ISOS30TA6 PO; +LIRA0.6P SQ; -UMEC62.5 IH; +VITAMIN D3 PO
--- NOTE | 2020-03-20 07:00 | NUR ---
PRE-PROCEDURE RECEIVED TO DAY 8 FOR SCHEDULED PERIPHERAL ANGIOGRAM, RLE LEARNING STRATEGIST/STENT. AWAKE IN NO ACUTE DISTRESS. AMBULATES WITH CANE. REPORTS PAIN WORSE WITH AMBULATING TO RIGHT LEG/RIGHT FOOT ERYTHEMATOUS, NON HEALING WOUND TO RIGHT GREAT TOE ( PER PATIENT JUST FINISHED ANTIBIOTICS)/FOOT COOL TO TOUCH/ CONNECTED TO CONTINUOUS CARDIOPULMONARY MONITORING/SIDE RAILS UP X2, BED IN LOWEST POSITION, AND CALL LIGHT W/IN REACH.
[2020-03-20 07:27] LABS: BASOPHILS % (AUTO) 0.9 % (0.0-5.0); EOSINOPHILS % (AUTO) 6.1 % (0.0-8.0); LYMPHOCYTES % (AUTO) 25.4 % (21.0-51.0); MEAN CORPUSCULAR HEMOGLOBIN 30.1 pg (27.0-33.0); MEAN CORPUSCULAR HGB CONC 32.2 g/dL (32.0-36.0); MEAN CORPUSCULAR VOLUME 93.5 fL (79-99); MONOCYTES % (AUTO) 8.8 % (3.0-13.0); NEUTROPHILS % (AUTO) 58.4 % (40.0-77.0); PLATELET COUNT (AUTO) 237 K/uL (130-400); RED BLOOD CELL COUNT(AUTO) 3.85 MIL/uL (4.50-6.20); RED CELL DISTRIBUTION WIDTH 15.9 % (11.0-15.5); WHITE BLOOD COUNT (AUTO) 10.6 K/uL (4.8-10.8)
[2020-03-20 07:28] LABS: APPEARANCE,URINE Clear (CLEAR); BILIRUBIN,URINE Negative (NEGATIVE); COLOR,URINE Yellow (YELLOW); GLUCOSE, URINE (UA) Negative (NEGATIVE); KETONES,URINE Negative (NEGATIVE); LEUKOCYTE ESTERASE ,URINE Negative (NEGATIVE); NITRATE,URINE Negative (NEGATIVE); OCCULT BLOOD,URINE Negative (NEGATIVE); PROTEIN,URINE Negative (NEGATIVE); UROBILINOGEN,URINE 0.2 mg/dL (0.2-1.0)
[2020-03-20 07:38] LABS: CREATININE 1.6 mg/dL (0.5-1.5); POTASSIUM 4.6 mmol/L (3.5-5.1)
[2020-03-20 07:41] LABS: PARTIAL THROMBOPLASTIN TIME 31.8 SEC (26.3-35.5); PROTHROMBIN TIME 10.8 SEC (9.6-11.6)
[2020-03-20] MEDS ORDERED: SODIUM CHLORIDE 0.9% 1000ML 1,000 ML IV ONE (08:12)
[2020-03-20] MEDS ORDERED: HEPARIN SODIUM 1000UNIT/ML 10ML VIAL ONE (10:02)
[2020-03-20] MEDS ORDERED: MIDAZOLAM HCL 1 MG/ML 2ML VIAL ONE (10:02)
[2020-03-20] MEDS ORDERED: LIDOCAINE HCL 2% 20ML ONE (10:02)
[2020-03-20] MEDS ORDERED: FENTANYL CITRATE PF 50 MCG/1 ML 2ML VIAL ONE (10:02)
[2020-03-20] MEDS ORDERED: IODIXANOL 320 MG/ML 100 ML VIAL ONE (10:02)
[2020-03-20] MEDS ORDERED: NITROGLYCERIN 2 MG/VIAL VIAL IV ONE (10:02)
--- NOTE | 2020-03-20 10:40 | NUR ---
PROCEDURE TRANSFERRED TO [facility] VIA BED BY JJ MOSES RN.
[2020-03-20] MEDS ORDERED: SODIUM CHLORIDE 0.9% 1000ML 1,000 ML IV SCH (11:33)
[2020-03-20] MEDS ORDERED: GLUCAGON 1MG KIT 1 MG ML IM PRN (11:45)
[2020-03-20] MEDS ORDERED: DEXTROSE 50%-WATER 50 ML DISP.SYRIN IV PRN (11:45)
[2020-03-20] MEDS ORDERED: NITROGLYCERIN 0.4 MG SL TAB SL PRN (11:45)
[2020-03-20] MEDS ORDERED: HYDRALAZINE HCL 20 MG/ML VIAL IV PRN (11:45)
--- NOTE | 2020-03-20 11:56 | NUR ---
ASSESSMENT RECEIVED PT FROM RACK MAKER. 6FR SHEATH TO LEFT GROIN. DRY AND INTACT. NO BLEEDING, OOZING NOTED TO SITE. INSTRUCTED PT ON IMPORTANCE OF KEEPING LEFT LEG STRAIGHT AND LIFTING HEAD UP OFF OF BED. PT VERBALIZED UNDERSTANDING.
[2020-03-20] MEDS ORDERED: ATROPINE SULFATE 0.1 MG/ML 10 ML SYG IVP ONE (12:20)
--- NOTE | 2020-03-20 13:35 | NUR ---
OSMANY MENDES INFORMED OF PT HAVING PAIN TO RIGHT BIG TOE. ORDERS RECEIVED TO GIVE [id number] 1 OR 2 PILLS PO NOW.
[2020-03-20] MEDS ORDERED: ACETAMINOPHEN 325 MG TAB ONE (13:40)
[2020-03-20] MEDS ORDERED: ACETAMINOPHEN EXTENDED RELEASE 650 MG TABLET PO PRN (13:45)
--- NOTE | 2020-03-20 16:00 | NUR ---
REPORT REPORT GIVEN TO Katherine JENSEN RN. PT LYING IN BED. NO SWELLING, OOZING NOTED TO LEFT GROIN.
[2020-03-20] MEDS ORDERED: INSULIN HUMULIN R 100 UNIT/ML 3ML SQ SCH (16:30)
== END 2020-03-20 16:30 | disposition home or self-care (01) ==
LOC: DAH 06:48
PROVIDERS: ATTEND Internal Medicine Cardiovascular Disease
DX: I70.203 Unspecified atherosclerosis of native arteries of extremities, bilateral legs (principal); I87.2 Venous insufficiency (chronic) (peripheral); F32.9 Major depressive disorder, single episode, unspecified; E11.9 Type 2 diabetes mellitus without complications; E78.5 Hyperlipidemia, unspecified; I10 Essential (primary) hypertension; Z79.01 Long term (current) use of anticoagulants; Z79.899 Other long term (current) drug therapy
CPT/HCPCS: 36140; 36415; 71045; 75710; 80048; 81003; 82948 ×3; 85025; 85610; 85730; 93005; A4215; A4216; A4221; A4222; A4223 ×3; A4606; A4663; C1769; C1894 ×2; J1644; J2250; J3010; J3490 ×2; J7030; Q9967; 36246; 99156; 99157; J0461

== ENCOUNTER 2020-03-27 09:00 | Inpatient (IN) | payer OTHER ==
[~2020-03-27] VITALS: Ht 167.6 cm; Wt 86.4 kg
[~2020-03-27 09:00] MED LIST changes: -CYAN-52 PO; -NITR0.4T50 SL
[2020-03-27 11:18] LABS: BASOPHILS % (AUTO) 0.9 % (0.0-5.0); EOSINOPHILS % (AUTO) 3.4 % (0.0-8.0); HEMATOCRIT 35.7 % (42-54); LYMPHOCYTES % (AUTO) 26.9 % (21.0-51.0); MEAN CORPUSCULAR HEMOGLOBIN 30.7 pg (27.0-33.0); MEAN CORPUSCULAR HGB CONC 32.8 g/dL (32.0-36.0); MEAN CORPUSCULAR VOLUME 93.7 fL (79-99); MONOCYTES % (AUTO) 7.8 % (3.0-13.0); NEUTROPHILS % (AUTO) 60.5 % (40.0-77.0); PLATELET COUNT (AUTO) 236 K/uL (130-400); RED BLOOD CELL COUNT(AUTO) 3.81 MIL/uL (4.50-6.20); RED CELL DISTRIBUTION WIDTH 15.2 % (11.0-15.5); WHITE BLOOD COUNT (AUTO) 10.5 K/uL (4.8-10.8)
[2020-03-27 11:31] LABS: INR 1.01 (0.85-1.15); PARTIAL THROMBOPLASTIN TIME 31.5 SEC (26.3-35.5); PROTHROMBIN TIME 10.9 SEC (9.6-11.6)
[2020-03-27 11:56] LABS: ALBUMIN 3.4 g/dL (3.5-5.0); BILIRUBIN,TOTAL 0.4 mg/dL (0.2-1.0); CREATININE 1.7 mg/dL (0.5-1.5); POTASSIUM 4.4 mmol/L (3.5-5.1); TOTAL PROTEIN, SERUM 7.2 g/dL (6.0-8.3)
[2020-03-28 10:43] VITALS: BP 135/54
[2020-03-31] MEDS ORDERED: VITAMIN B12 PO (12:00)
[2020-03-31] MEDS ORDERED: ASPI-556 PO (12:00)
--- NOTE | 2020-03-31 13:46 | NUR ---
RE: ABNORMAL LABS REPORTED LABS (BUN 20, CREAT 1.7,HGB 11.7/HCT 35.7 TO ROSA SOLIS. NO NEW ORDERS, OK TO PROCEED WITH SURGERY.
[2020-04-01] VITALS (26 sets, daily range): BP systolic 117–176; BP diastolic 41–81
[2020-04-01] MEDS: CEFUROXIME SODIUM 1.5 GM VIAL IVP SCH ×2 (06:00→18:00)
[2020-04-01] MEDS ORDERED: SODIUM CHLORIDE 0.9% 1000ML 1,000 ML IV ONE (07:51)
[2020-04-01] MEDS ORDERED: NITROGLYCERIN SL (08:32)
--- NOTE | 2020-04-01 08:37 | NUR ---
ASSESS RIGHT BIG TOE NOTED TO HAVE A DRY WOUND, BLACK IN COLOR, NOT DRAINING, OPEN TO AIR, NAIL WITH SOME PART BLACK DISCOLORATION. PT STATES DR. MORAN KNOWS ABOUT IT AND IS THE REASON FOR THIS SURGERY
[2020-04-01] MEDS ORDERED: FENTANYL CITRATE PF 50 MCG/1 ML 2ML VIAL ONE ×2 (16:46→19:20)
[2020-04-01] MEDS ORDERED: LIDOCAINE PF 2% 5ML ABBOJECT ONE (16:46)
[2020-04-01] MEDS ORDERED: ROCURONIUM 10MG/1ML SYR 10 MG/ML ML ONE (16:46)
[2020-04-01] MEDS ORDERED: PROPOFOL 10 MG/ML 20ML VIAL IV ONE (16:46)
[2020-04-01] MEDS ORDERED: SUCCINYLCHOLINE CHLORIDE 20 MG/ML 10 ML VIAL ONE (16:46)
[2020-04-01] MEDS ORDERED: PHENYLEPHRINE HCL 10 MG/ML 1ML VIAL IV ONE ×2 (16:47→16:53)
[2020-04-01] MEDS ORDERED: MIDAZOLAM HCL 1 MG/ML 2ML VIAL ONE (16:58)
[2020-04-01] MEDS ORDERED: LIDOCAINE HCL-MPF 1% 5ML AMP IJ ONE (16:58)
[2020-04-01] MEDS ORDERED: CEFAZOLIN SODIUM 1 GM VIAL ONE (17:02)
[2020-04-01] MEDS ORDERED: POTASSIUM CHLORIDE 10% ELIXIR 20 MEQ/15 ML UDCUP PO PRN (17:30)
[2020-04-01] MEDS ORDERED: GLUCAGON 1MG KIT 1 MG ML IM PRN (17:30)
[2020-04-01] MEDS ORDERED: DEXTROSE 50%-WATER 50 ML DISP.SYRIN IV PRN (17:30)
[2020-04-01] MEDS ORDERED: POTASSIUM CHLORIDE 20MEQ/100ML 100 ML IV PRN (17:30)
[2020-04-01] MEDS ORDERED: LIDOCAINE HCL-MPF 1% 2ML VIAL IV PRN (17:30)
[2020-04-01] MEDS ORDERED: TRAMADOL HCL 50 MG TABLET PO PRN (17:30)
[2020-04-01] MEDS ORDERED: ACETAMINOPHEN 325 MG TAB PO PRN (17:30)
[2020-04-01] MEDS ORDERED: ALBUTEROL SULFATE 0.083% 2.5 MG/3 ML INH IH PRN (17:30)
[2020-04-01] MEDS ORDERED: HEPARIN SODIUM 1000UNIT/ML 10ML VIAL ONE (17:51)
[2020-04-01] MEDS ORDERED: GLYCOPYRROLATE 1 MG/5 ML SYRINGE ONE ×2 (17:58→19:18)
[2020-04-01] MEDS ORDERED: NEOSTIGMINE 5MG/5ML SYR IV ONE (19:18)
[2020-04-01] MEDS ORDERED: MEPERIDINE-PF 25 MG/ML SYG ONE (20:22)
[2020-04-01] MEDS: INSULIN HUMULIN R 100 UNIT/ML 3ML SQ SCH (21:00)
[2020-04-01] MEDS: DONEPEZIL HCL 5 MG TAB PO SCH (21:17)
[2020-04-01] MEDS: ISOSORBIDE MONO 30MG TAB SR PO SCH (21:18)
[2020-04-01] MEDS: ATORVASTATIN CALCIUM 40 MG TABLET PO SCH (21:18)
--- NOTE | 2020-04-02 01:00 | NUR ---
TROUBLE URINATING PATIENT STATES HAVING TROUBLE URINATING AND THAT HE NORMALLY TAKES FLOMAX AT NIGHT THAT HE DID NOT RECEIVE TODAY. NO DISTENTION NOTED. ABDOMEN SOFT NO TENDERNESS.
[2020-04-02] MEDS: TRAMADOL HCL 50 MG TABLET PO PRN ×2 (01:05→20:09)
[2020-04-02] MEDS: TAMSULOSIN HCL 0.4 MG CAP.ER.24H PO SCH ×3 (01:15→19:48)
[2020-04-02] MEDS ORDERED: TAMSULOSIN HCL 0.4 MG CAP.ER.24H ONE (01:43)
--- NOTE | 2020-04-02 03:00 | NUR ---
TROUBLE URINATING AFTER RECEIVING A DOSE OF FLOMAX PATIENT CONTINUES TO FEEL THE URGE TO URINATE BUT UNABLE TO. PATIENTS ABDOMEN IS DISTENDED AND TENDER TO PALPATION.
--- NOTE | 2020-04-02 03:15 | NUR ---
BLADDER SCAN [id number]
[2020-04-02 03:44] VITALS: BP 190/77
[2020-04-02 03:52] LABS: HEMATOCRIT 38.6 % (42-54); MEAN CORPUSCULAR HEMOGLOBIN 31.1 pg (27.0-33.0); MEAN CORPUSCULAR HGB CONC 33.2 g/dL (32.0-36.0); MEAN CORPUSCULAR VOLUME 93.7 fL (79-99); RED BLOOD CELL COUNT(AUTO) 4.12 MIL/uL (4.50-6.20); RED CELL DISTRIBUTION WIDTH 14.8 % (11.0-15.5); WHITE BLOOD COUNT (AUTO) 16.7 K/uL (4.8-10.8)
[2020-04-02 04:06] LABS: CREATININE 1.2 mg/dL (0.5-1.5); POTASSIUM 4.2 mmol/L (3.5-5.1)
[2020-04-02] MEDS: CEFAZOLIN SODIUM 1 GM VIAL IVP SCH ×3 (04:24→18:49)
[2020-04-02] MEDS: INSULIN HUMULIN R 100 UNIT/ML 3ML SQ SCH ×4 (06:55→21:57)
--- NOTE | 2020-04-02 07:35 | NUR ---
ASSESSMENT ENCOUNTERED PT A&OX3, CALM COOPERATIVE AND DOES NOT APPEAR TO BE IN ANY DISTRESS NOR ANY NEURO DEFICITS PRESENT. PT DENIES PAIN, SOB, NAUSEA. PT IS ABLE TO TOLERATE FOODS FLUIDS AND MEDICATION WITH NO THROAT CLEARING OR COUGH. GROIN SOFT WITH NO OOZING OR HEMATOMA PRESENT. DP/PT PULSES BY DOPPLER. CALL LIGHT WITHIN REACH.
[2020-04-02 08:00] VITALS: BP 135/63
[2020-04-02] MEDS: (Icosapent Ethyl (Vascepa) 2 GM) PO SCH ×2 (08:00→17:00)
[2020-04-02] MEDS: IRON 28 MG PO SCH (09:00)
[2020-04-02] MEDS: LISINOPRIL 10 MG TABLET PO SCH (10:46)
[2020-04-02] MEDS: FUROSEMIDE 20 MG TABLET PO SCH (10:46)
[2020-04-02] MEDS: DULOXETINE HCL 30 MG CAP PO SCH (10:47)
--- NOTE | 2020-04-02 10:48 | NUR ---
1031 patient signed IM Letter, I faxed IM Letter to [phone] and placed in chart under consent tab.
[2020-04-02 12:00] VITALS: BP 130/69
[2020-04-02] MEDS: ASPIRIN 81 MG EC TAB PO SCH (13:59)
[2020-04-02] MEDS: ALLOPURINOL 100 MG TABLET PO SCH (14:00)
[2020-04-02] MEDS: METOPROLOL SUCCINATE 50 MG TAB.SR.24H PO SCH (14:00)
[2020-04-02] MEDS: CLOPIDOGREL BISULFATE 75 MG TAB PO SCH (14:04)
[2020-04-02 16:00] VITALS: BP 155/54
[2020-04-02] MEDS: EZETIMIBE 10 MG TAB PO SCH (18:48)
[2020-04-02] MEDS: PANTOPRAZOLE SODIUM 40 MG TABLET.DR PO SCH (18:48)
[2020-04-02 20:01] VITALS: BP 146/90
[2020-04-02] MEDS: DONEPEZIL HCL 5 MG TAB PO SCH (20:10)
[2020-04-02] MEDS: ATORVASTATIN CALCIUM 40 MG TABLET PO SCH (20:10)
[2020-04-02] MEDS: ISOSORBIDE MONO 30MG TAB SR PO SCH (20:10)
[2020-04-02 23:17] VITALS: BP 104/40
[2020-04-03 04:04] VITALS: BP 140/47
[2020-04-03 04:45] LABS: HEMATOCRIT 31.9 % (42-54); MEAN CORPUSCULAR HEMOGLOBIN 30.3 pg (27.0-33.0); MEAN CORPUSCULAR HGB CONC 32.3 g/dL (32.0-36.0); MEAN CORPUSCULAR VOLUME 93.8 fL (79-99); RED BLOOD CELL COUNT(AUTO) 3.4 MIL/uL (4.50-6.20); RED CELL DISTRIBUTION WIDTH 14.9 % (11.0-15.5); WHITE BLOOD COUNT (AUTO) 14.7 K/uL (4.8-10.8)
[2020-04-03 05:00] LABS: CREATININE 1.3 mg/dL (0.5-1.5); POTASSIUM 3.7 mmol/L (3.5-5.1)
[2020-04-03] MEDS: INSULIN HUMULIN R 100 UNIT/ML 3ML SQ SCH ×4 (06:20→21:56)
[2020-04-03] MEDS: TRAMADOL HCL 50 MG TABLET PO PRN ×2 (06:37→20:25)
[2020-04-03 08:00] VITALS: BP 156/57
[2020-04-03] MEDS: (Icosapent Ethyl (Vascepa) 2 GM) PO SCH ×2 (08:00→16:11)
[2020-04-03] MEDS: IRON 28 MG PO SCH (09:00)
[2020-04-03] MEDS: FUROSEMIDE 20 MG TABLET PO SCH (09:35)
[2020-04-03] MEDS: DULOXETINE HCL 30 MG CAP PO SCH (09:35)
[2020-04-03] MEDS: LISINOPRIL 10 MG TABLET PO SCH (09:35)
[2020-04-03] MEDS: POTASSIUM CHLORIDE 20 MEQ ERTAB PO PRN ×2 (09:38→11:22)
[2020-04-03 11:00] VITALS: BP 156/55
[2020-04-03] MEDS: ASPIRIN 81 MG EC TAB PO SCH (11:28)
[2020-04-03] MEDS: METOPROLOL SUCCINATE 50 MG TAB.SR.24H PO SCH (11:28)
[2020-04-03] MEDS: ALLOPURINOL 100 MG TABLET PO SCH (11:29)
[2020-04-03] MEDS: CLOPIDOGREL BISULFATE 75 MG TAB PO SCH (11:29)
[2020-04-03 16:00] VITALS: BP 143/86
[2020-04-03] MEDS: TAMSULOSIN HCL 0.4 MG CAP.ER.24H PO SCH ×2 (16:38→19:59)
[2020-04-03] MEDS: EZETIMIBE 10 MG TAB PO SCH (16:38)
[2020-04-03] MEDS: PANTOPRAZOLE SODIUM 40 MG TABLET.DR PO SCH (16:38)
[2020-04-03 19:00] VITALS: BP 140/51
[2020-04-03] MEDS: DONEPEZIL HCL 5 MG TAB PO SCH (20:24)
[2020-04-03] MEDS: ISOSORBIDE MONO 30MG TAB SR PO SCH (20:24)
[2020-04-03] MEDS: ATORVASTATIN CALCIUM 40 MG TABLET PO SCH (20:25)
[2020-04-03 23:00] VITALS: BP 137/46
[2020-04-04 03:00] VITALS: BP 131/53
[2020-04-04] MEDS: INSULIN HUMULIN R 100 UNIT/ML 3ML SQ SCH ×2 (05:01→12:45)
[2020-04-04 07:54] VITALS: BP 145/55
[2020-04-04] MEDS: (Icosapent Ethyl (Vascepa) 2 GM) PO SCH (08:00)
[2020-04-04] MEDS: FUROSEMIDE 20 MG TABLET PO SCH (08:38)
[2020-04-04] MEDS: LISINOPRIL 10 MG TABLET PO SCH (08:38)
[2020-04-04] MEDS: DULOXETINE HCL 30 MG CAP PO SCH (08:38)
[2020-04-04] MEDS: IRON 28 MG PO SCH (08:38)
[2020-04-04] MEDS ORDERED: FURO20TA6 PO (10:09)
[2020-04-04] MEDS ORDERED: CEPH500B PO (10:10)
[2020-04-04] MEDS ORDERED: TRAM50TA4 PO (10:11)
--- NOTE | 2020-04-04 10:30 | NUR ---
cm note met with patient and states fabienne alford alone, does have a fancy walker and a front wheel walker at home. no other dme. no other services. states has daughters that assist him and will be staying with him at home after dc. so he will no be alone, call made to daughter Kaylene as per pt request and updated on all above, also informed of orders for Home health, for sn and PT, and ptand daughter verbalize understanding, and request [facility]. choice letter obtained and referral faxed.
[2020-04-04 11:32] VITALS: BP 179/68
--- NOTE | 2020-04-04 12:00 | NUR ---
cm note faxed clinical information to [facility] and no response, did call and speak to acquisition professional nurse dianelys [phone] states that they will followup with referral on monday and will visit by monday or monday. but no one can see the referral until then, she requested i try to fax referral to local fax#[phone]. and it did go through confirmation received. also call made to dr Burt, and informed that no referral was completed only started and faxed, and can not call report to them at this time. gave new orders and states pt can be discharged and they can followup with the [facility] on monday for any questions. call made to pt's daughter Kaylene james, and states she works for [email or web address], and she is familiar with [facility], and she will followup with them on monday, states she has their phone #. and know to call md or or call casemanagement department on monday for any questions . updated that [facility] may not be able to followup with them until monday or monday, but she can call on monday to verify, she verbalizes understanding. pt also in room and aware. updated Lynsey primary nurse, and aware of above, and will not be able to call report at this time. but is aware.
[2020-04-04] MEDS: METOPROLOL SUCCINATE 50 MG TAB.SR.24H PO SCH (12:45)
[2020-04-04] MEDS: CLOPIDOGREL BISULFATE 75 MG TAB PO SCH (12:45)
[2020-04-04] MEDS: ALLOPURINOL 100 MG TABLET PO SCH (12:45)
[2020-04-04] MEDS: ASPIRIN 81 MG EC TAB PO SCH (12:45)
--- NOTE | 2020-04-04 15:24 | NUR ---
PT extra note on 04/04/20: Patient can benefit from a referral to Home Health PT (gait training, etc). Addendum: 04/04/20 at 1526 by MARC KUNZ PT Amended: Links added.
--- NOTE | 2020-04-04 16:28 | NUR ---
DISCHARGE INSTRUCTIONS GIVEN TO PATIENT. TEACH BACK METHOD USED TO EDUCATE ON WOUND CARE, S/S TO MONITOR FOR , WHEN TO CALL MD, NEW MEDS PRESCRIBED, AND F/U APPOINTMENTS. PIV REMOVED.TIP WAS INTACT. TELE PACK REMOVED AND RETURNED. NEW PRESCRIPTIONS WERE CALLED IN TO PREFERRED PHARMACY BY WILL VALDES RN. ALL BELONGINGS WERE PACKED BY PATIENT. HE WAS SAFELY WHEELED TO PRIVATE VEHICLE BY TYRONE GOOD.
== END 2020-04-04 16:28 | disposition home health service (06) | DRG 254 ==
LOC: EDSTATUS 09:00 → DAHIP 04-01 07:17 → 4CH 04-01 20:25
PROVIDERS: ADMIT Thoracic Surgery (Cardiothoracic Vascular Surgery); ATTEND Thoracic Surgery (Cardiothoracic Vascular Surgery)
PROC: 041K0KL Bypass Right Femoral Artery to Popliteal Artery with Nonautologous Tissue Substitute, Open Approach (ICD-10-PCS; principal; 2020-04-01 17:32)
DX: I73.9 Peripheral vascular disease, unspecified (principal); J44.9 Chronic obstructive pulmonary disease, unspecified; I10 Essential (primary) hypertension; I25.10 Atherosclerotic heart disease of native coronary artery without angina pectoris; K21.9 Gastro-esophageal reflux disease without esophagitis; E78.5 Hyperlipidemia, unspecified; E11.9 Type 2 diabetes mellitus without complications; F32.9 Major depressive disorder, single episode, unspecified; Z95.5 Presence of coronary angioplasty implant and graft; I25.2 Old myocardial infarction; Z83.3 Family history of diabetes mellitus; Z82.49 Family history of ischemic heart disease and other diseases of the circulatory system
CPT/HCPCS: 36415; 71046; 80048; 80053; 82948; 83036; 85025; 85027; 85610; 85730; 86850; 86900; 86901; 93005; 94664; 97039; G0378; J0330; J0690; J0697; J1644; J1815; J2001; J2175; J2250; J2370; J2704; J2710; J3010; J3490; J7030; J7040

== ENCOUNTER 2020-08-06 18:24 | Emergency (ER) | payer OTHER ==
[~2020-08-06 18:24] MED LIST changes: +ASPI-556 PO; +CEPH500B PO; +NITROGLYCERIN SL; +TRAM50TA4 PO; +VITAMIN B12 PO
[2020-08-06 19:14] LABS: BASOPHILS % (AUTO) 0.5 % (0.0-5.0); EOSINOPHILS % (AUTO) 0.7 % (0.0-8.0); HEMATOCRIT 26.5 % (42-54); LYMPHOCYTES % (AUTO) 10.8 % (21.0-51.0); MEAN CORPUSCULAR HGB CONC 31.3 g/dL (32.0-36.0); MEAN CORPUSCULAR VOLUME 92.7 fL (79-99); MONOCYTES % (AUTO) 9.2 % (3.0-13.0); NEUTROPHILS % (AUTO) 78.4 % (40.0-77.0); PLATELET COUNT (AUTO) 345 K/uL (130-400); RED BLOOD CELL COUNT(AUTO) 2.86 MIL/uL (4.50-6.20); RED CELL DISTRIBUTION WIDTH 15.2 % (11.0-15.5); WHITE BLOOD COUNT (AUTO) 15.7 K/uL (4.8-10.8)
[2020-08-06] MEDS ORDERED: ASPIRIN 325 MG TABLET ONE (19:15)
[2020-08-06 19:22] LABS: CREATININE 1.3 mg/dL (0.5-1.5); POTASSIUM 4.1 mmol/L (3.5-5.1)
[2020-08-06 19:26] LABS: ALBUMIN 2.1 g/dL (3.5-5.0); BILIRUBIN,TOTAL 0.4 mg/dL (0.2-1.0); TOTAL PROTEIN, SERUM 7.7 g/dL (6.0-8.3)
[2020-08-06 19:53] LABS: INR 1.18 (0.85-1.15); PARTIAL THROMBOPLASTIN TIME 31.2 SEC (26.3-35.5); PROTHROMBIN TIME 12.7 SEC (9.6-11.6)
[2020-08-06] MEDS ORDERED: IOHEXOL-350 75 ML VIAL IV ONE (20:18)
[2020-08-06] MEDS ORDERED: CLOPIDOGREL BISULFATE 75 MG TAB PO SCH (20:27)
[2020-08-06] MEDS ORDERED: ACETAMINOPHEN 325 MG TAB PO PRN (20:30)
[2020-08-06] MEDS ORDERED: SODIUM CHLORIDE 0.9% 1000ML 1,000 ML IV SCH (20:30)
[2020-08-06] MEDS ORDERED: ONDANSETRON HCL 4 MG/2 ML VIAL IVP PRN (20:30)
[2020-08-06 20:46] LABS: APPEARANCE,URINE Clear (CLEAR); BILIRUBIN,URINE Negative (NEGATIVE); COLOR,URINE Yellow (YELLOW); GLUCOSE, URINE (UA) Negative (NEGATIVE); KETONES,URINE Negative (NEGATIVE); LEUKOCYTE ESTERASE ,URINE Negative (NEGATIVE); NITRATE,URINE Negative (NEGATIVE); OCCULT BLOOD,URINE Trace (NEGATIVE); PROTEIN,URINE POS 2+ mg/dL (NEGATIVE)
[2020-08-06 20:53] LABS: AMPHET/METH SCREEN,URINE NEGATIVE (NEGATIVE); BARBITURATE SCREEN, URINE NEGATIVE (NEGATIVE); BENZODIAZEPINES SCREEN,URINE NEGATIVE (NEGATIVE); CANNABINOID SCREEN,URINE NEGATIVE (NEGATIVE); COCAINE SCREEN,URINE NEGATIVE (NEGATIVE); OPIATE SCREEN,URINE NEGATIVE (NEGATIVE); PHENCYCLIDINE SCREEN,URINE NEGATIVE (NEGATIVE)
[2020-08-06] MEDS ORDERED: CLOPIDOGREL BISULFATE 75 MG TAB ONE (20:56)
[2020-08-06 21:03] LABS: BACTERIA,URINE Rare /HPF (None Seen); MUCUS,URINE Few LPF (None Seen); SQUAMOUS EPITHELIAL CELL,UR Rare /HPF (0-2); WBC,URINE 0-1 /HPF (0-1)
[2020-08-07] MEDS ORDERED: PANTOPRAZOLE SODIUM 40 MG TABLET.DR PO SCH (09:00)
[2020-08-07] MEDS ORDERED: ASPIRIN 325 MG TABLET PO SCH (09:00)
== END 2020-08-07 01:25 | disposition home or self-care (01) ==
LOC: EDH 18:24 → EDHIP 19:50 → UNDOADMIN 19:50 → EDH 08-07 01:25
DX: I62.9 Nontraumatic intracranial hemorrhage, unspecified (principal); I65.01 Occlusion and stenosis of right vertebral artery; E11.9 Type 2 diabetes mellitus without complications; E78.5 Hyperlipidemia, unspecified; I25.2 Old myocardial infarction; Z87.891 Personal history of nicotine dependence
CPT/HCPCS: 36415; 70450; 70496; 70498; 71045; 80053; 80305; 81001; 82550; 83721; 84484; 85025; 85610; 85730; 93005; 99285; Q9967